=== PATIENT | male | born 1980 | race Caucasian/White ===

== ENCOUNTER → 2018-08-22 | Outpatient (REF) | payer MEDICARE, MEDICAID ==
[~2018-08-22] MED LIST: CEPH500T7 PO; IBUP600T22 PO; KET10 PO; LOR5/325 PO; OXYC-865 PO; SLEEP MED PO; TRAZ-252
[2018-08-22 12:04] LABS: PLATELET COUNT, AUTOMATED 224 K/uL (150-450)
== END ==
PROVIDERS: ATTEND Family Medicine
DX: R21 Rash and other nonspecific skin eruption (principal)
CPT/HCPCS: 85025; 86140; 86592; 86618; G0432; 82040; 82247; 82310; 82374; 82435; 82565; 82947; 84075; 84132; 84155; 84295; 84450; 84460; 84520; 86703